=== PATIENT | male | born 1955 | race Caucasian/White ===

== ENCOUNTER 2017-10-06 19:29 | Emergency (ER) | payer OTHER ==
[~2017-10-06] VITALS: Ht 167.6 cm; Wt 69.4 kg
[~2017-10-06 19:29] MED LIST: ADULT TUSS100 MG/5 M PO; ASPIRIN325 PO; AVELOX 400 MG400 M1 PO; AVELOX400 MG PO; CEFTIN500 MG PO; DEPAKENE250 MG PO; KEPPRA 100100 MG/M1 PO; KEPPRA250 MG PO; NORCO 5-325 TA1 EACH PO; PROTONIX40 M1 PO; VALPROIC A250 MG/51 PO; VENTOLIN HFA 1818 GM INH; ZOFRAN ODT4 MG PO; ZOFRAN4 MG PO; ZPAK PO
[2017-10-06] MEDS ORDERED: TRAMADOL 50 MG50 MG PO (21:06)
[2017-10-06] MEDS ORDERED: KEFLEX500 M1 PO (21:06)
[2017-10-06 21:17] VITALS: BP 179/97
== END 2017-10-06 21:17 | disposition home or self-care (01) ==
LOC: ER 19:29
DX: S01.312A Laceration without foreign body of left ear, initial encounter (principal); F11.29 Opioid dependence with unspecified opioid-induced disorder; Z85.01 Personal history of malignant neoplasm of esophagus; Z87.891 Personal history of nicotine dependence; Z88.8 Allergy status to other drugs, medicaments and biological substances; W18.30XA Fall on same level, unspecified, initial encounter; Y93.89 Activity, other specified; Y92.89 Other specified places as the place of occurrence of the external cause; Y99.8 Other external cause status